=== PATIENT | female | born 1995 | race African-American/Black ===

== ENCOUNTER 2019-08-05 17:38 | Emergency (ER) | payer OTHER, BC ==
--- NOTE | 2019-08-05 18:16 | ER Document Report ---
ED Medical Screen (RME) - General Chief Complaint: Eye Problem Stated Complaint: EYE IRRITATION,REDNESS,DRAINAGE Time Seen by Provider: 08/05/19 18:15 Mode of Arrival: Ambulatory Information source: Patient Notes: 24-year-old female presents to ED for complaint of pain and drainage to both eyes since Tuesday. She went to the urgent care in [place] on had a true visit they started her on some Polytrim eyedrops. She states she has had no improvement in her eye pain and drainage. She states she does not have an laser specialist. She is alert oriented respirations regular nonlabored speaking in full sentences walks with even steady gait. I have greeted and performed a rapid initial assessment of this patient. A comprehensive ED assessment and evaluation of the patient, analysis of test results and completion of medical decision making process will be conducted by an additional ED providers. - Related Data Allergies/Adverse Reactions: Unable to Assess Allergy (Unverified 08/05/19 18:14) Past Medical History - Social History Chew tobacco use (# tins/day): No Frequency of alcohol use: None Drug Abuse: None Physical Exam - Vital signs Vitals: Temp Pulse Resp BP Pulse Ox 99.1 F 94 16 149/101 H 97 08/05/19 18:04 08/05/19 18:04 08/05/19 18:04 08/05/19 18:04 08/05/19 18:04 Course - Vital Signs Vital signs: Temp Pulse Resp BP Pulse Ox 99.1 F 94 16 149/101 H 97 08/05/19 18:11 08/05/19 18:04 08/05/19 18:04 08/05/19 18:04 08/05/19 18:04
--- NOTE | 2019-08-05 19:25 | ER Document Report ---
ED Eye Complaint - General Chief Complaint: Eye Problem Stated Complaint: EYE IRRITATION,REDNESS,DRAINAGE Time Seen by Provider: 08/05/19 18:15 Mode of Arrival: Ambulatory Information source: Patient Notes: 24 y/o female no previous medical history presents to the emergency room complaining of persistent redness and drainage to both of her eyes. States symptoms started 4 days ago after positive exposure to Conjunctivits. Patient states she was seen at Urgent care 2 days ago was prescribed Polytrim which she states she has been using without relief. Denies any trauma or injury, no use of contacts or glasses. Denies any visual changes, denies eye pain. TRAVEL OUTSIDE OF THE [place] IN LAST 30 DAYS: No - Related Data Allergies/Adverse Reactions: No Known Allergies Allergy (Unverified 08/05/19 19:19) Past Medical History - General Information source: Patient - Social History Smoking Status: Never Smoker Chew tobacco use (# tins/day): No Frequency of alcohol use: Occasional Drug Abuse: None Family History: Reviewed & Not Pertinent Patient has homicidal ideation: No - Medical History Medical History: Negative Review of Systems - Review of Systems Constitutional: No symptoms reported EENT: Eye discharge, Tearing. denies: Eye pain, Blurred vision, Double vision Cardiovascular: No symptoms reported Respiratory: No symptoms reported Neurological/Psychological: No symptoms reported -: Yes All other systems reviewed and negative Physical Exam - Vital signs Vitals: Temp Pulse Resp BP Pulse Ox 99.1 F 94 16 149/101 H 97 08/05/19 18:04 08/05/19 18:04 08/05/19 18:04 08/05/19 18:04 08/05/19 18:04 - General General appearance: Appears well, Alert In distress: Mild - HEENT Head: Normocephalic, Atraumatic Eyes: Normal Conjunctiva: Injected - Bilateral, Purulent discharge - yellow discharge noted bilaterally left worse than right Cornea: Normal Extraocular movements intact: Yes Eyelashes: Normal Pupils: PERRL Visual acuity- Right eye: 20/25 Visual acuity- Left eye: 20/25 Visual acuity- Both eyes: 20/25 Corrective lenses worn: No - Not required Visual umanzor normal: Yes - Respiratory Respiratory status: No respiratory distress Chest status: Nontender Breath sounds: Normal Chest palpation: Normal - Cardiovascular Rhythm: Regular Heart sounds: Normal auscultation Murmur: No - Extremities General upper extremity: Normal inspection, Nontender, Normal color, Normal ROM, Normal temperature General lower extremity: Normal inspection, Nontender, Normal color, Normal ROM, Normal temperature, Normal weight bearing. No: Jet's sign - Neurological Neuro grossly intact: Yes Cognition: Normal Orientation: AAOx4 Thom Coma Scale Eye Opening: Spontaneous Bradley Coma Scale Verbal: Oriented Bradley Coma Scale Motor: Obeys Commands Bradley Coma Scale Total: 15 Speech: Normal Motor strength normal: LUE, RUE, LLE, RLE Sensory: Normal - Skin Skin Temperature: Warm Skin Moisture: Dry Skin Color: Normal Course - Re-evaluation Re-evalutation: 08/05/19 19:45 Discussed diagnosis with patient. Visual acuity with in normal limits. Counseled on need to follow up with Ophthalmology tomorrow call for an appointment. Given strict return to the emergency room guidelines. Return for any new or worsening symptoms. All questions were answered. Patient verbalizes understanding and agrees with plan of care. - Vital Signs Vital signs: Temp Pulse Resp BP Pulse Ox 98.6 F 80 16 143/100 H 100 08/05/19 20:00 08/05/19 20:00 08/05/19 20:00 08/05/19 20:00 08/05/19 20:00 Discharge - Discharge Clinical Impression: Conjunctivitis Qualifiers: Conjunctivitis type: acute Acute conjunctivitis type: unspecified Laterality: bilateral Qualified Code(s): H10.33 - Unspecified acute conjunctivitis, bilateral Condition: Stable Disposition: HOME, SELF-CARE Instructions: Antibiotic Therapy ([facility]), Conjunctivitis ([facility]), Eyedrop Use ([facility]) Additional Instructions: Counseled on good handwashing, change eye drops as prescribed. Call Ophthalmology tomorrow for follow up appointment. Return for any new or worsening symptoms. Prescriptions: Moxifloxacin HCl [Vigamox 0.5% Oph Soln 3 ml] 1 drop OP TID #1 bottle
[2019-08-05 20:03] VITALS: BP 143/100
== END 2019-08-05 20:02 | disposition home or self-care (01) ==
LOC: ER 17:38
DX: H10.33 Unspecified acute conjunctivitis, bilateral (principal)
CPT/HCPCS: 99283